=== PATIENT | male | born 2000 | race Caucasian/White ===

== ENCOUNTER → 2022-01-13 | Outpatient (CLI) | payer BC, SELFPAY ==
[2022-01-13 15:54] LABS: AST(SGOT) 167 U/L (15-37); Alanine Aminotransfer ALT/SGPT 366 U/L (16-61); Cholesterol 148 mg/dL (200); High Density Lipoprotein 36 mg/dL; Triglycerides 119 mg/dL; Very Low Density Lipoprotein 24 mg/dL (5-40)
[2022-01-15 11:39] LABS: LDL, Direct 120295 85 mg/dL (0-99)
== END | disposition home or self-care (01) ==
LOC: MTLAB 12:48
DX: L70.0 Acne vulgaris (principal); Z79.899 Other long term (current) drug therapy
CPT/HCPCS: 36415; 80061; 83721; 84450; 84460